=== PATIENT | male | born 1990 | race Hispanic/Latino ===

== ENCOUNTER 2018-01-07 06:59 | Emergency (ER) | payer SELFPAY ==
[2018-01-07] MEDS ORDERED: Morphine 4 MG/ML VIAL ONE (07:30)
[2018-01-07] MEDS ORDERED: Sodium Chloride 0.9% 1,000 ML BAG ONE (07:37)
[2018-01-07 07:45] LABS: ALT (SGPT) 24 U/L (8-55); AST (SGOT) 18 U/L (5-34); Albumin 4.4 g/dL (3.5-5.0); Alkaline Phosphatase 62 U/L (40-150); Anion Gap 16 mmol/L (10-20); BUN (Urea Nitrogen) 13 mg/dL (8.9-20.6); Bilirubin, Total 0.8 mg/dL (0.2-1.2); Calc. Creatinine Clearance 0 mL/min (70-130); Calcium 9.6 mg/dL (7.8-10.44); Carbon Dioxide 20 mmol/L (22-29); Chloride 108 mmol/L (98-107); Estimated GFR-MDRD Greater than 90; Globulin 2.8 g/dL (2.4-3.5); Glucose 144 mg/dL (70-105); Potassium 3.1 mmol/L (3.5-5.1); Protein, Total 7.2 g/dL (6.0-8.3); Sodium 141 mmol/L (136-145)
[2018-01-07 07:48] LABS: Eosinophils 6 % (0-10); Lymphocytes 45 % (21-51); MDiff Complete? YES; Mean Corpuscular HGB CONC 33.2 g/dL (32.0-36.0); Mean Corpuscular Hemoglobin 28.8 pg (27.0-31.0); Mean Corpuscular Volume 86.7 fL (78.0-98.0); Mean Platelet Volume 12.2 fL (7.4-10.4); Monocytes 8 % (0-10); Neutrophil 41 % (42-75); PLT Morphology Comment Appears Adequate; Platelet Count 204 thou/uL (130-400); Red Blood Cell (RBC) Count 5.21 mill/uL (4.70-6.10); White Blood Cell (WBC) Count 8.6 thou/uL (4.8-10.8)
[2018-01-07] MEDS ORDERED: Potassium Chloride 20 MEQ TAB ONE (07:50)
[2018-01-07 07:59] LABS: Bilirubin Small (Negative); Blood, Urine Large (Negative); Clarity Cloudy (Clear); Glucose, Urine (Dipstick) Negative (Negative); Leukocyte Negative (Negative); Nitrite Negative (Negative); Protein, Urine (Dipstick) 100 mg/dL (Neg-Trace); Urobilinogen 0.2 mg/dL (0.2-1.0); pH, Urine 5.5 (5.0-9.0)
[2018-01-07 08:00] LABS: RBC/HPF GREATER THAN 50-TNTC HPF (0-3); Specific Gravity, Urine 1.032 (1.002-1.036)
[2018-01-07 08:01] LABS: Bacteria/HPF 1+ HPF (None Seen); Squamous Epithelial None Seen HPF (0-3); WBC/HPF 0-3 HPF (0-3)
--- NOTE | 2018-01-07 08:34 | CT ---
CT ABDOMEN AND PELVIS WITHOUT CONTRAST: HISTORY: Left flank pain. FINDINGS: Absence of oral and IV contrast reduces the sensitivity of the exam, particular for evaluation of leann id organs involved. The lung bases are clear. No free air or free fluid is seen in the abdomen or pelvis. No calcified gallstones are identified. A normal-appearing appendix is seen. No calculi are noted in the kidneys or ureters. There is a 3 mm calculus in the dependent portion of the bladder close to the left UVJ. There is mild left-sided hydroureteral nephrosis indicating recent passage of calculus into the uri nary bladder. IMPRESSION: Findings suggestive of recent passage of 3 mm left-sided urinary tract calculus into the urinary blad ting. POS: JOVITA
== END 2018-01-07 08:40 | disposition home or self-care (01) ==
LOC: MADERS 06:59
DX: N13.2 Hydronephrosis with renal and ureteral calculous obstruction (principal); E87.6 Hypokalemia
CPT/HCPCS: 74176; 80053; 81003; 81015; 85025; 87086; 96361; 96374; J2270; J7050